=== PATIENT | female | born 1930 | race Caucasian/White ===

== ENCOUNTER 2016-09-28 10:24 | Emergency (ER) | payer BC ==
[~2016-09-28] VITALS: Ht 152.4 cm; Wt 54.9 kg
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
--- OUTSIDE RECORDS SUMMARY | 2016-09-28 10:57 | External Medical Summary Rpt ---
Author Author [employer] Organization [employer] Address Unknown Phone Unavailable Purpose Continuity of Care Document - through 2016
--- OUTSIDE RECORDS SUMMARY | 2016-09-28 10:57 | External Medical Summary Rpt ---
Demographics Preferred Language Hungarian Marital Status Unknown Worship Affiliation Unknown Race Unknown Ethnic Group Unknown Author Author [facility] Address Unknown Phone Purpose Continuity of Care Document - through 2016
--- OUTSIDE RECORDS SUMMARY | 2016-09-28 10:57 | External Medical Summary Rpt ---
Author Author [facility] Baptiste, [employer] Organization [employer] Address Unknown Phone Unavailable
--- OUTSIDE RECORDS SUMMARY | 2016-09-28 10:57 | External Medical Summary Rpt ---
Demographics Preferred Language Omani Marital Status Unknown Advent Affiliation Unknown Race Unknown Ethnic Group Unknown Author Author [facility] Address Unknown Phone Immunization No patient found.
--- OUTSIDE RECORDS SUMMARY | 2016-09-28 10:57 | External Medical Summary Rpt ---
Demographics Preferred Language Azerbaijani Marital Status Unknown Synagogue Affiliation Unknown Race Unknown Ethnic Group Unknown Author Author [facility]GEL Address Unknown Phone Immunization No patient found.
--- OUTSIDE RECORDS SUMMARY | 2016-09-28 10:57 | External Medical Summary Rpt ---
Demographics Preferred Language Estonian Marital Status Unknown Samaritan Affiliation Unknown Race Unknown Ethnic Group Unknown Author Author [facility]GEL Address Unknown Phone Purpose Continuity of Care Document - through 2016
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
[2016-09-28 11:17] VITALS: BP 136/75
[2016-10-03] MEDS ORDERED: FLUOXETINE HYDR20 MG PO (14:26)
[2016-10-03] MEDS ORDERED: ACETAMINOPHEN-H1 TA1 PO (14:28)
[2016-10-03] MEDS ORDERED: DICLOFENAC SODI75 M2 PO (14:29)
[2016-10-03] MEDS ORDERED: OMEPRAZOLE20 MG PO (14:30)
== END 2016-09-28 11:20 | disposition home or self-care (01) ==
LOC: ER 10:24
DX: S92.014A Nondisplaced fracture of body of right calcaneus, initial encounter for closed fracture (principal); W22.8XXA Striking against or struck by other objects, initial encounter; Y92.89 Other specified places as the place of occurrence of the external cause

== ENCOUNTER → 2016-11-06 | Outpatient (CLI) | payer MEDICARE ==
[~2016-11-06] MED LIST: ACETAMINOPHEN-H1 TA1 PO; DICLOFENAC SODI75 M2 PO; FLUOXETINE HYDR20 MG PO; OMEPRAZOLE20 MG PO
[2016-11-06 18:13] LABS: HEMOGLOBIN 14.5 g/dL (12.2-16.2); LYMPH # 2.3 K/mm3 (0.7-4.5); LYMPH % 23.4 % (10-50.0)
[2016-11-06 19:13] LABS: BUN 17 mg/dL (7-18)
[2016-11-06 19:22] LABS: GFR (ESTIMATED) 68 ML/MIN (59-)
== END ==
LOC: LAB 17:38
PROVIDERS: Emergency Medicine
DX: R53.1 Weakness (principal); Z79.899 Other long term (current) drug therapy

== ENCOUNTER → 2017-01-16 | Emergency (ER) | payer MEDICARE ==
[~2017-01-16] VITALS: Ht 157.5 cm; Wt 54.4 kg
[~2017-01-16] MED LIST changes: +PREDNISONE 20MG20 MG PO
--- OUTSIDE RECORDS SUMMARY | 2017-01-16 00:59 | External Medical Summary Rpt | CCD ---
Demographics Preferred Language Stateless Marital Status Unknown Adventist Affiliation Unknown Race Unknown Ethnic Group Unknown Author Author , ANGEL ORTIZ Address Unknown Phone Immunization No patient found.
--- OUTSIDE RECORDS SUMMARY | 2017-01-16 00:59 | External Medical Summary Rpt ---
Author Author [facility]GEL Baptiste, [employer] Address Unknown Phone Unavailable Results Hemoglobin A1c in Blood Observa Value Referen Units Interpr Notes Date tion ce etation Range Hemoglo 5.3 0.0 - % Normal < 6% Sep bin A1c 7.0 NON-BEST 2017 in BETIC 12:15 Blood LEVEL< PM 7% CONTROL LED DIABETI C LEVEL> 8% POORLY CONTROL LED DIABETI C LEVEL Comprehensive metabolic 2000 panel in Serum or Plasma Observa Value Referen Units Interpr Notes Date tion ce etation Range Albumin/G 1.1 - 1.8 No Normal No Sep 19 lobulin informati informati 2017 [Mass on in on in 12:15 PM ratio] in source source Serum or data data Plasma Albumin 3.4 - 5.0 gm/dL Normal No Sep [Mass/vol informati 2017 ume] in on in 12:15 PM Serum or source Plasma data Alkaline 46 - 116 U/L Normal No Sep phosphata informati 2017 se on in 12:15 PM [Enzymati source c data activity/ volume] in Serum or Plasma Bilirubin 0.2 - 1.0 mg/dL Normal No Sep .total informati 2016 [Mass/vol on in 12:15 PM ume] in source Serum or data Plasma Urea 7 - 18 mg/dL Normal No Sep 19 nitrogen informati 2017 [Mass/vol on in 12:15 PM ume] in source Serum or data Plasma Calcium 8.5 - mg/dL Normal No Sep [Mass/vol 10.1 informati 2017 ume] in on in 12:15 PM Serum or source Plasma data Chloride 98 - 107 mmoL/L Normal No Sep 19 [Moles/vo informati 2017 lume] in on in 12:15 PM Serum or source Plasma data Carbon 21.0 - mmoL/L Normal No Sep 19 dioxide, 32.0 informati 2017 total on in 12:15 PM [Moles/vo source lume] in data Serum or Plasma Creatinin 0.55 - mg/dL Normal No Sep 19 e 1.02 inform2016 [Mass/vol on in 12:15 PM ume] in source Serum or data Plasma Estimated 59- ML/MIN No REFERENCE Sep 19 informati RANGE: 2017 glomerula on in >60 12:15 PM r source ML/MIN/1. filtratio data 73 SQUARE n rate METERSIf (GF this patient is -A merican, then multiply theresult by 1.210. Globulin 1.3 - 3.2 gm/dL High No Sep 19 [Mass/vol informati 2016 ume] in on in 12:15 PM Serum source data Glucose 74 - 106 mg/dL Normal No Sep 19 [Mass/vol informati 2016 ume] in on in 12:15 PM Serum or source Plasma data Potassium 3.5 - 5.1 mmoL/L Normal No Sep 19 inform2016 [Moles/vo on in 12:15 PM lume] in source Serum or data Plasma Sodium 136 - 145 mmoL/L Normal No Sep 19 [Moles/vo informati 2016 lume] in on in 12:15 PM Serum or source Plasma data Aspartate 15 - 37 U/L Normal No Sep 19 inform 2017 aminotran on in 12:15 PM sferase source [Enzymati data c activity/ volume] in Serum or Plasma Alanine 12 - 78 U/L Normal No Sep 19 aminotran inform2016 sferase on in 12:15 PM [Enzymati source c data activity/ volume] in Serum or Plasma Protein 6.4 - 8.2 gm/dL Normal No Sep 19 [Mass/vol informati 2016 ume] in on in 12:15 PM Serum or source Plasma data Thyroxine (T4) [Mass/volume] in Serum or Plasma Observa Value Referen Units Interpr Notes Date tion ce etation Range Thyroxine 4.7 - ug/dl Normal No Sep 19 (T4) 13.3 informati 2016 [Mass/vol on in 12:15 PM ume] in source Serum or data Plasma Thyrotropin [Units/volume] in Serum or Plasma Observa Value Referen Units Interpr Notes Date tion ce etation Range Thyrotrop 0.358 - uIU/ml Normal No Sep 19 in 3.740 informati 2016 [Units/vo on in 12:15 PM lume] in source Serum or data Plasma CBC W Auto Differential panel in Blood Observa Value Referen Units Interpr Notes Date tion ce etation Range Basophils 0 - 0.2 K/MM3 Normal No Sep 19 inform2016 [#/volume on in 12:15 PM ] in source Blood by data Automated count Basophils 0.1 - 2.0 % Normal No Sep 19 /100 inform2016 leukocyte on in 12:15 PM s in source Blood by data Automated count Eosinophi 0.0 - 0.4 K/mm3 Normal No Sep 19 ls inform2016 [#/volume on in 12:15 PM ] in source Blood by data Automated count Eosinophi 0.1 - % Normal No Sep 19 ls/100 12.0 inform2016 leukocyte on in 12:15 PM s in source Blood by data Automated count Granulocy 1.8 - 7.8 K/mm3 Normal No Sep 19 lula inform2016 [#/volume on in 12:15 PM ] in source Blood by data Automated count Granulocy 37.0 - % Normal No Sep 19 lula/100 80.0 inform2016 leukocyte on in 12:15 PM s in source Blood by data Automated count Hematocri 37.0 - % Normal No Sep 19 t [Volume 47.0 informati 2016 on in 12:15 PM Fraction] source of Blood data Hemoglobi 12.2 - g/dL Normal No Sep 19 n 16.2 inform2016 [Mass/vol on in 12:15 PM ume] in source Blood data Lymphocyt 0.7 - 4.5 K/mm3 Normal No Sep 19 es inform2016 [#/volume on in 12:15 PM ] in source Unspecifi data ed specimen by Automated count Lymphocyt 10 - 50.0 % Normal No Sep 19 es inform2016 [#/volume on in 12:15 PM ] in source Unspecifi data ed specimen by Automated count Erythrocy 27 - 31.2 pg Normal No Sep 19 te mean inform2016 corpuscul on in 12:15 PM ar source hemoglobi data n [Entitic mass] Erythrocy 31.8 - g/dl Normal No Sep 19 te mean 35.4 inform2016 corpuscul on in 12:15 PM ar source hemoglobi data n concentra tion [Mass/vol ume] by Automated count Erythrocy 82.2 - fl Normal No Sep 19 te mean 97.8 inform2016 corpuscul on in 12:15 PM ar volume source [Entitic data volume] by Automated count Monocytes 0.1 - 1.0 K/mm3 Normal No Sep 19 inform2016 [#/volume on in 12:15 PM ] in source Blood by data Automated count Monocytes 1.7 - 9.3 % Normal No Oct 19 /100 2016 leukocyte on in 12:15 PM s in source Blood by data Automated count Platelet 7.4 - fl Normal No Oct 19 mean 10.4 2016 volume on in 12:15 PM [Entitic source volume] data in Blood by Automated count Platelets 142 - 424 K/mm3 Normal No Sep 19 inform2016 [#/volume on in 12:15 PM ] in source Blood data Erythrocy 4.2 - 5.4 M/mm3 Normal No Oct 19 lula inform2016 [#/volume on in 12:15 PM ] in source Amniotic data fluid Erythrocy 11.5 - % Normal No Oct 19 te 17.5 2016 distribut on in 12:15 PM ion width source [Entitic data volume] by Automated count Leukocyte 4.8 - K/MM3 Normal No Oct 19 s 10.8 inform2016 [#/volume on in 12:15 PM ] in source Blood data
--- OUTSIDE RECORDS SUMMARY | 2017-01-16 00:59 | External Medical Summary Rpt | CCD ---
Author Author , ANGEL ORTIZ Address Unknown Phone [email or web address] Purpose Continuity of Care Document - 09-27-2016 through 2016 Problems Code Diagnosis DOS Provider Status M25.511 PAIN IN 09-27-2016 RIGHT SHOULDER R07.81 PLEURODYNIA 09-27-2016 S92.001A UNSP FRACTURE OF RIGHT CALCANEUS, INIT FOR CLOS FX Results Labs Lab Lab Date Result Refere Interp Status Commen Order Detail nces retati t Range on Hemoglobin A1c in Blood (11-06-2016 12:15) Hemoglo 5.3 % 0.0% Normal complet bin A1c 017 - ed in 12:15 7.0% Blood
--- OUTSIDE RECORDS SUMMARY | 2017-01-16 00:59 | External Medical Summary Rpt | CCD ---
Author Author , ANGEL ORTIZ Address Unknown Phone [email or web address] Purpose Continuity of Care Document - 09-27-2016 [...]
--- OUTSIDE RECORDS SUMMARY | 2017-01-16 00:59 | External Medical Summary Rpt | CCD ---
Demographics Preferred Language Surinamese Marital Status Unknown Spiritism Affiliation Unknown Race Unknown Ethnic Group Unknown Author Author , ANGEL ORTIZ Address Unknown Phone Immunization No patient found.
--- NOTE | 2017-01-16 01:27 | Emergency Room Report ---
History of Present Illness Time Seen by 003Martin Presenting Problem in Triage Pt arrived:Wheelchair Presenting Problem:LEFT KNEE PAIN, STATES IT FEELS LIKE SPASMS AND COMES IN WAVES THEN STATES SHE BELIEVES BUGS ARE IN HER KNEE. Onset of symptoms date/time:01/16/17 or onset unknown for: Treatment Prior to Arrival: LORATAB 10 MG AT [address] Provided by:SELF Sepsis Risk Assessment: Temp: 98.4 B/P: 140/79 MAP: 99 Pulse: 56 Resp: 18 Recent fever? N Clinical Suspician of Infection? N Mental Status: 2 - Mildly Altered Sepsis Risk:Low Sepsis Risk Have you (or family members/close friends) recently traveled outside the [place]? N If Yes, where/when: Have you had exposure to infectious disease within the past month? N TB? Other? Specify: Source patient, RN notes reviewed, family, old records Exam Limitations no limitations Comment atraumatic lt knee pain with no fever or rash which started tonight Cardiac Chest Pain Chest pain indicative of cardiac No Timing/Duration this evening Severity moderate ALLERGIES Coded Allergies: codeine (Mild, 09/28/16) Home Medications Reported Medications FLUOXETINE HCL (Fluoxetine Hydrochloride) 20 MG PO DAILY #90 HYDROCODONE/ACETAMINOPHEN (Hydrocodon-Acetaminophn 10-325) 1 TAB PO DAILY PRN PAIN #45 Omeprazole (Omeprazole 20MG) 20 MG PO DAILY History Medical History General CAD? No Angina: No [place]: No Hypertension? No Hyperlipidemia? No CHF? No DVT? No PE? No COPD? No Asthma? No Anemia? No GERD? No Gastric ulcers? No GI Bleed? No Hernia? No Thyroid Problems? No Hypothyroidism? No CVA? No Seizures? No Diabetes? No Renal Insuffiency? No End Stage Renal Disease? No UTI? No Stones? No BPH? No GB Disease: No Nephritic Syndrome? No Asplenia? No Hepatitis? No Sickle Cell Disease? No Arthritis? Yes Migraines? No Cataracts? No Glaucoma? No MRSA? No HIV? No TB? No Anxiety? No Depression? Yes Cancer? No More? No Immunization Hx DT/Tetanus Unknown Flu Refused Pneumonia Received In Past Surgical Hx Previous Surgery?Y SHOULDER BACK X2 Appendectomy KIDNEY Social History Smoking Hx Smoker: Never Smoker Tobacco: No Are you/the child exposed to second-hand smoke: No Alcohol Alcohol: No Drugs none Review of Systems All Other Systems Reviewed and Negative Constitutional denies fever Eyes denies drainage ENT denies: ear discharge, epistaxis, throat pain. Respiratory denies cough, denies shortness of breath Cardiovascular denies chest pain, denies syncope Gastrointestinal denies abdominal pain, denies diarrhea, denies vomiting Genitourinary denies: dysuria, frequency, hesitancy, hematuria. Musculoskeletal see HPI, denies back pain, joint pain, denies joint swelling, denies neck pain Skin denies rash Psychiatric/Neurological denies headache, denies seizure Physical Exam Vital Signs Vital Signs Date Time Temp Pulse Resp B/P Pulse O2 O2 Flow FiO2 Ox Delivery Rate 01/16 0028 98.4 56 18 140/79 95 - WBC >12,000 or <4,000 or 10% bands? 2 or more SIRS Criteria Met? B/P:140/79 MAP:99 Creatinine >2.0? UA output<0.5ml/kg/hr for 2 hrs? Platelet count >100,000? Lactate >2.0mmol/1? INR >1.2 or PTT > than 60 sec? Evidence of Organ Dysfunction? Provider documented clinical suspician of infection? N Sepsis Criteria Count: 0 Sepsis Risk: Low Sepsis Risk General Appearance no apparent distress Eye Exam - bilateral eye PERRL, bilateral eye EOMI Ear, Nose, Throat normal ENT inspection Neck supple Respiratory Status No: respiratory distress. 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 No Results/Orders Orders Procedure Date/time Status KNEE-3 VIEWS-LT 01/16 0038 Active XRAY/CT/US XRAY/CT/US XRAY knee XR interpretation by reviewed by me Xray Results no fracture seen, abnormal Departure Departure Time of Disposition 0117 Disposition DC Home or Self Care(routine) Clinical Impression Primary Impression: Arthralgia Qualifiers: Joint pain location: knee Laterality: left Qualified Code: M25.562 - Pain in left knee Condition STABLE Referrals Serena WALSH,Klapesh Davis (Family) Patient Instructions DI for Joint Pain Additional Instructions use meds and see pcp for follow up Discharge Counseling Counseled pt/family regarding diagnosis, test results, medications/RX, follow up needs Prescriptions Current Visit Scripts Prednisone (Prednisone 20MG) 20 MG PO BID #10 TAB ED Critical Care Critical Care No at 0126
[2017-01-16 01:43] VITALS: BP 140/79
--- NOTE | 2017-01-16 05:24 | RADIOLOGY REPORT PS360 ---
KNEE-3 VIEWS-LT HISTORY: LEFT KNEE PAIN ORDERING PHYSICIAN: Norberto Lyons MD PATIENT AGE: 86 years COMPARISON: None FINDINGS: No fracture or dislocation. No lytic or blastic change. Normal mineralization. There are mild to moderate osteoarthritic changes of the medial compartment. There is vague decreased attenuation along the central aspect of the medial tibial plateau and along the central aspect of the proximal tibia. No obvious knee joint effusion. IMPRESSION: 1. Osteoarthritis of the medial compartment. 2. Decreased attenuation the proximal tibia medially which may be due to decreased bony trabeculation. Cannot exclude a lytic lesion. 3. Possible fracture of the medial tibial plateau centrally. 4. Consider MRI or CT of the left knee for evaluation
== END ==
LOC: ER 00:22
DX: M25.562 Pain in left knee (principal)